=== PATIENT | female | born 1975 | race Caucasian/White ===

== ENCOUNTER 2021-03-21 22:05 | Emergency (ER) | payer SELFPAY ==
[2021-03-21] MEDS ORDERED: metroNIDAZOLE 250 MG TAB ONE (22:41)
[2021-03-21] MEDS ORDERED: traMADol HCl 50 MG TAB ONE (22:41)
[2021-03-21] MEDS ORDERED: Ciprofloxacin 500 MG TAB ONE (22:41)
== END 2021-03-21 22:46 | disposition home or self-care (01) ==
LOC: MADERS 22:05
DX: K57.92 Diverticulitis of intestine, part unspecified, without perforation or abscess without bleeding (principal); Z79.899 Other long term (current) drug therapy
CPT/HCPCS: 99283